=== PATIENT | female | born 1980 | race African-American/Black ===

== ENCOUNTER 2016-06-06 18:37 | Emergency (ER) | payer MEDICAID ==
[2016-06-07] MEDS ORDERED: PROCHLORPERAZINE EDISYLATE INJ 10 MG/2 ML VIAL IV ONE (01:19)
[2016-06-07] MEDS ORDERED: ONDANSETRON HCL INJ/PF 4 MG/2 ML SDV IV ONE (01:19)
[2016-06-07] MEDS: NORMAL SALINE 1000 ML 1,000 ML IV PRN ×2 (03:10→04:00)
--- NOTE | 2016-06-07 03:59 | ER Document Report ---
ED General - General Chief Complaint: Headache Stated Complaint: HEADACHE TRAVEL OUTSIDE OF THE [place] IN LAST 30 DAYS: No - HPI Patient complains to provider of: headache Notes: Patient with a history of migraines. Patient coming in for exacerbation of her chronic migraines. Patient states no change in her headaches. Patient denies fevers chills nausea vomiting patient states she is currently not on control. Denies any trauma. Denies any visual symptoms. - Related Data Allergies/Adverse Reactions: No Known Allergies Allergy (Verified 06/06/16 18:47) Past Medical History - General Information source: Patient - Social History Smoking Status: Never Smoker Chew tobacco use (# tins/day): No Frequency of alcohol use: None Drug Abuse: None Family History: None Patient has suicidal ideation: No Patient has homicidal ideation: No - Immunizations Hx Diphtheria, Pertussis, Tetanus Vaccination: Yes Review of Systems - Review of Systems Constitutional: No symptoms reported EENT: No symptoms reported Cardiovascular: No symptoms reported Respiratory: No symptoms reported Gastrointestinal: No symptoms reported Genitourinary: No symptoms reported Female Genitourinary: No symptoms reported Musculoskeletal: No symptoms reported Skin: No symptoms reported Hematologic/Lymphatic: No symptoms reported Neurological/Psychological: Headaches -: Yes All other systems reviewed and negative Physical Exam - Vital signs Vitals: Temp Pulse Resp BP Pulse Ox 98.9 F 85 16 106/60 100 06/06/16 18:43 06/06/16 18:43 06/06/16 18:43 06/06/16 18:43 06/06/16 18:43 Interpretation: Normal - General General appearance: Appears well, Alert - HEENT Head: Normocephalic, Atraumatic Eyes: Normal Conjunctiva: Normal Cornea: Normal Extraocular movements intact: Yes Pupils: PERRL Anterior chamber: Normal Fundascopic: Normal - Respiratory Respiratory status: No respiratory distress Chest status: Nontender Breath sounds: Normal Chest palpation: Normal - Cardiovascular Rhythm: Regular Heart sounds: Normal auscultation Murmur: No - Abdominal Inspection: Normal Distension: No distension Bowel sounds: Normal Tenderness: Nontender Organomegaly: No organomegaly - Back Back: Normal, Nontender - Extremities General upper extremity: Normal inspection, Nontender, Normal color, Normal ROM , Normal temperature General lower extremity: Normal inspection, Nontender, Normal color, Normal ROM , Normal temperature, Normal weight bearing. 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 The patient is neurologically intact. Given the extremely low risk of these diagnoses further testing and evaluation for these possibilities does not appear to be indicated at this time. The patient has been instructed to return if the symptoms worsen or change in any way.. - Vital Signs Vital signs: Temp Pulse Resp BP Pulse Ox 98.9 F 85 16 106/60 100 06/06/16 18:43 06/06/16 18:43 06/06/16 18:43 06/06/16 18:43 06/06/16 18:43 Discharge - Discharge Clinical Impression: Headache Qualifiers: Headache type: unspecified Headache chronicity pattern: unspecified pattern Intractability: not intractable Qualified Code(s): R51 - Headache Disposition: HOME, SELF-CARE Instructions: Intravenous Compazine for Headaches ([facility]), Headache ([facility]) Additional Instructions: May take medication as prescribed for headache. I will suggest taking them together. Return to the ER symptoms return Prescriptions: Ondansetron [Zofran Odt 4 mg Tablet] 4 mg PO Q6HP PRN #20 tab.rapdis PRN Reason: Prochlorperazine Maleate [Compazine] 5 mg PO Q6 #20 tablet Forms: Return to Work
[2016-06-07 05:07] VITALS: BP 107/61
== END 2016-06-07 05:08 | disposition home or self-care (01) ==
LOC: ER 18:37
DX: R51 Headache (principal)
CPT/HCPCS: 99283; 96361; 96374; 96375; J0780; J2405; J7030

== ENCOUNTER 2016-12-03 11:16 | Emergency (ER) | payer MEDICAID ==
[2016-12-03] MEDS ORDERED: KETOROLAC TROMETHAMINE INJ/PF 30 MG/1 ML SDV IV ONE (11:38)
[2016-12-03] MEDS ORDERED: ONDANSETRON HCL INJ/PF 4 MG/2 ML SDV IV ONE (11:39)
--- NOTE | 2016-12-03 11:41 | ER Document Report ---
ED Medical Screen (RME) - General Chief Complaint: Abdominal Pain Stated Complaint: BACK/ABDOMINAL PAIN Time Seen by Provider: 12/03/16 11:37 Notes: Patient is here complaining of lower abdominal cramping which she says feels like a "charley horse" patient says her symptoms began after she had an attempt at removing her IUD yesterday. She has had the IUD for 5 years and it is time for it to be removed. She says that the health department had difficulty trying to remove the IUD and ultimately was able to remove it. She began having some cramping soon after this happened yesterday afternoon. This morning , she is having more severe cramping pains and also at 8:00 began vomiting. No fever. Patient appears to be very uncomfortable. TRAVEL OUTSIDE OF THE [place] IN LAST 30 DAYS: No - Related Data Allergies/Adverse Reactions: No Known Allergies Allergy (Verified 12/03/16 11:21) Past Medical History - Social History Chew tobacco use (# tins/day): No Frequency of alcohol use: None Drug Abuse: None Neurological Medical History: Reports: Hx Migraine Renal/ Medical History: Denies: Hx Peritoneal Dialysis Surgical Hx: Negative - Immunizations Hx Diphtheria, Pertussis, Tetanus Vaccination: Yes Physical Exam - Vital signs Vitals: Temp Pulse Resp BP Pulse Ox 98.1 F 93 18 122/90 H 100 12/03/16 11:21 12/03/16 11:21 12/03/16 11:21 12/03/16 11:21 12/03/16 11:21 Course - Vital Signs Vital signs: Temp Pulse Resp BP Pulse Ox 98.1 F 93 18 122/90 H 100 12/03/16 11:21 12/03/16 11:21 12/03/16 11:21 12/03/16 11:21 12/03/16 11:21
[2016-12-03 12:28] LABS: ABSOLUTE EOSINOPHILS # (AUTO) 0.1 10^3/uL (0.0-0.6); ABSOLUTE LYMPHOCYTES (AUTO) 1.9 10^3/uL (0.5-4.7); ABSOLUTE MONOCYTES (AUTO) 0.4 10^3/uL (0.1-1.4); ABSOLUTE NEUT (AUTO) 6.6 10^3/uL (1.7-8.2); BASOPHILS % (AUTO) 0.1 % (0-2); EOSINOPHILS % (AUTO) 0.6 % (0-6); HEMATOCRIT 44.1 % (36.0-47.0); HEMOGLOBIN 14.5 g/dL (12.0-15.5); HGB HCT DIFFERENCE -0.6; LYMPHOCYTES % (AUTO) 20.9 % (13-45); MEAN CORPUSCULAR HEMOGLOBIN 29.1 pg (27.0-33.4); MEAN CORPUSCULAR HGB CONC 32.8 g/dL (32.0-36.0); MEAN CORPUSCULAR VOLUME 89 fl (80-97); RED BLOOD COUNT 4.97 10^6/uL (3.72-5.28); RED CELL DISTRIBUTION WIDTH 12.9 % (11.5-14.0); SEGMENTED NEUTROPHILS % (AUTO) 74.4 % (42-78); WHITE BLOOD COUNT 8.9 10^3/uL (4.0-10.5)
[2016-12-03] MEDS ORDERED: ERTAPENEM SODIUM INJ 1 GM VIAL IV ONE (12:30)
[2016-12-03] MEDS ORDERED: NORMAL SALINE 1000 ML 1,000 ML IV ONE (12:30)
[2016-12-03 12:54] LABS: ALANINE AMINOTRANSFERASE 28 U/L (9-52); ALBUMIN 4.6 g/dL (3.5-5.0); ALKALINE PHOSPHATASE 71 U/L (38-126); ANION GAP 12 (5-19); ASPARTATE AMINO TRANSFERASE 33 U/L (14-36); BILIRUBIN,DIRECT 0.3 mg/dL (0.0-0.4); BILIRUBIN,TOTAL 0.7 mg/dL (0.2-1.3); BLOOD UREA NITROGEN 9 mg/dL (7-20); CALCIUM 9.5 mg/dL (8.4-10.2); CARBON DIOXIDE 28 mmol/L (22-30); CHLORIDE 101 mmol/L (98-107); CREATININE RESULT 0.82 mg/dL (0.52-1.25); GLUCOSE 99 mg/dL (75-110); LIPASE 55.7 U/L (23-300); POTASSIUM 4.1 mmol/L (3.6-5.0); SODIUM 140.7 mmol/L (137-145); TOTAL PROTEIN 9.1 g/dL (6.3-8.2)
[2016-12-03 13:50] LABS: APPEARANCE,URINE CLEAR; BILIRUBIN,URINE NEGATIVE (NEGATIVE); GLUCOSE, URINE NEGATIVE (NEGATIVE); KETONES,URINE NEGATIVE (NEGATIVE); LEUKOCYTE ESTERASE,URINE NEGATIVE (NEGATIVE); NITRITE,URINE NEGATIVE (NEGATIVE); PROTEIN,URINE NEGATIVE (NEGATIVE); URINE SPECIFIC GRAVITY 1.019; UROBILINOGEN,URINE NEGATIVE mg/dL (<2.0)
--- NOTE | 2016-12-03 14:11 | RADIOLOGY REPORT (SQ) ---
EXAM DESCRIPTION: U/S NON-OB PELVIS TV W/O DOP COMPLETED DATE/TIME: 12/03/2016 1:27 pm REASON FOR STUDY: pelvic pain, eval location of IUD COMPARISON: None. TECHNIQUE: Dynamic and static grayscale images acquired of the pelvis via transvaginal approach and recorded on PACS. Additional selected color Doppler and spectral images recorded. LIMITATIONS: None. FINDINGS: UTERUS: Contour normal. No mass. ENDOMETRIAL STRIPE: 5 mm thickness, no irregularity. Artifact from an IUD extends from the lower iliamna rine segment into the fundus. CERVIX: No nabothian cysts. RIGHT OVARY: No abnormal masses. RIGHT OVARY DOPPLER: Normal arterial vascular flow without evidence for torsion. LEFT OVARY: No abnormal masses. LEFT OVARY DOPPLER: Normal arterial vascular flow without evidence for torsion. FREE FLUID: None noted. OTHER: No other significant finding. MEASUREMENTS: UTERUS: 7.7 x 6.0 x 3.8 cm ENDOMETRIAL STRIPE: As above, IUD looks grossly appropriate RIGHT OVARY: 2.6 x 1.6 x 1.9 cm LEFT OVARY: 2.5 x 2.2 x 1.6 cm IMPRESSION: IUD grossly appropriately positioned. Unremarkable pelvic ultrasound. TECHNICAL DOCUMENTATION: JOB ID: [id number] [employer]- All Rights Reserved
[2016-12-03] MEDS ORDERED: HYDROCODONE/ACETAMINOPHEN 5-325 MG TABLET PO ONE (14:36)
--- NOTE | 2016-12-03 14:48 | ER Document Report ---
ED GI/ - General Chief Complaint: Abdominal Pain Stated Complaint: BACK/ABDOMINAL PAIN Time Seen by Provider: 12/03/16 11:37 Notes: Patient is a 36-year-old female who presents emergency department complaining of abdominal pain. Patient states yesterday she went to the health department to have her IUD removed. She states that the provider was not able to locate the strings and remove it. She states that she has had an ultrasound back in February to confirm its placement since she is having cramping at that time and it was in the appropriate position. She states that the provider yesterday could not remove the strings and sent her home. She states she woke up this morning with severe pelvic cramping at about 6 AM that radiated into bilateral flanks. She states that she felt bloated. She admits to nausea and one episode of emesis but otherwise denies currently any nausea vomiting. She denies any diarrhea constipation, urinary retention, urgency, pyuria, hematuria , vaginal discharge, vaginal pain, vaginal itching. Patient states she is sexually active in a monogamous relationship with her . Past medical history significant for previous copper IUD in 2010 eroding into her uterus and required vaginal removal by an [employer]. Otherwise healthy female TRAVEL OUTSIDE OF THE [place] IN LAST 30 DAYS: No - Related Data Allergies/Adverse Reactions: No Known Allergies Allergy (Verified 12/03/16 11:21) Past Medical History - Social History Smoking Status: Never Smoker Chew tobacco use (# tins/day): No Frequency of alcohol use: None Drug Abuse: None Family History: None Patient has suicidal ideation: No Patient has homicidal ideation: No Neurological Medical History: Reports: Hx Migraine Renal/ Medical History: Denies: Hx Peritoneal Dialysis Surgical Hx: Negative - Immunizations Hx Diphtheria, Pertussis, Tetanus Vaccination: Yes Review of Systems - Review of Systems Constitutional: No symptoms reported Cardiovascular: No symptoms reported Respiratory: No symptoms reported Gastrointestinal: See HPI Genitourinary: See HPI Female Genitourinary: See HPI -: Yes All other systems reviewed and negative Physical Exam - Vital signs Vitals: Temp Pulse Resp BP Pulse Ox 98.1 F 93 18 122/90 H 100 12/03/16 11:21 12/03/16 11:21 12/03/16 11:21 12/03/16 11:21 12/03/16 11:21 - Notes Notes: PHYSICAL EXAM GENERAL: Alert, interacts well. HEAD: Normocephalic, atraumatic. EYES: Pupils equal, round, and reactive to light. Extraocular movements intact. ENT: Oral mucosa moist, tongue midline. NECK: Full range of motion. Supple. Trachea midline. LUNGS: Clear to auscultation bilaterally, no wheezes, rales, or rhonchi. No respiratory distress. HEART: Regular rate and rhythm. No murmurs, gallops, or rubs. ABDOMEN: Soft, nondistended, nontender. No guarding, rebound, or rigidity.. Bowel sounds present in all 4 quadrants. FEMALE : Normal external exam. No evidence of lesions, lacerations, bruising or vesicles. Speculum exam unable to appreciate cervix or IUD strings. No evidence of vaginal discharge with odor. No evidence of lesions. No vaginal bleeding. Bimanual exam normal no cervical motion tenderness. No adnexal mass or adnexal tenderness. EXTREMITIES: Moves all 4 extremities spontaneously. No edema, radial and dorsalis pedis pulses 2/4 bilaterally. No cyanosis. NEUROLOGICAL: Alert and oriented x4. Normal speech. PSYCH: Normal affect, normal mood. SKIN: Warm, dry, normal turgor. No rashes or lesions noted. Course - Re-evaluation Re-evalutation: 12/03/16 18:46 Patient is a 36-year-old female who is hemodynamic stable, no acute distress and afebrile. CBC stable without any evidence of leukocytosis or anemia. CMP normal. UA negative for UTI, Gonorrhea/Chlamydia screen negative. Ultrasound shows IUD in appropriate position without any free fluid in the adnexa bilaterally. Acute abdomen series without any evidence of free air. 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 Patient to be discharged home with strict return precautions. She is agreeable with plan. - Vital Signs Vital signs: Temp Pulse Resp BP Pulse Ox 98.0 F 88 18 125/90 H 99 12/03/16 16:00 12/03/16 16:00 12/03/16 16:00 12/03/16 16:00 12/03/16 16:00 - Laboratory Result Diagrams: 12/03/16 11:49 12/03/16 11:49 Laboratory results interpreted by me: 12/03/16 11:49 Total Protein 9.1 H - Diagnostic Test Radiology reviewed: Image reviewed, Reports reviewed Discharge - Discharge Clinical Impression: Pelvic pain Condition: Good Disposition: HOME, SELF-CARE Additional Instructions: Your IUD was confirmed to be in the correct place based on ultrasound completed in the emergency department today. There is no concern for infection at this time. Please follow-up with [facility] to have your [facility]UD removed Do not engage in intercourse until your symptoms have improved Prescriptions: Hydrocodone/Acetaminophen [Penrose 5-325 mg Tablet] 1 tab PO Q6HP PRN #15 tablet PRN Reason: Ibuprofen [Motrin 800 mg Tablet] 800 mg PO Q8H PRN #30 tab PRN Reason: Referrals: [facility] [Provider Group] - Follow up in 3-5 days
[2016-12-03 15:06] LABS: CHLAM PCR NOT DETECTED (NOT DETECT)
--- NOTE | 2016-12-03 15:16 | RADIOLOGY REPORT (SQ) ---
EXAM DESCRIPTION: ACUTE ABDOMEN SERIES COMPLETED DATE/TIME: 12/03/2016 2:57 pm REASON FOR STUDY: abdominal pain with distension COMPARISON: None. NUMBER OF VIEWS: Three views. TECHNIQUE: Frontal chest, supine abdomen and upright/decubitus abdomen radiographic images acquired. LIMITATIONS: None. FINDINGS: CHEST: Lungs clear of infiltrates. FREE AIR: None. No abnormal gas collections. BOWEL GAS PATTERN: Nonobstructive pattern. No dilated loops or air fluid levels. CALCIFICATIONS: No suspicious calcifications. HARDWARE: IUD artifact projects over the pelvis. SOFT TISSUES: No gross mass or suggestion of organomegaly. BONES: No acute fracture. No worrisome bone lesions. OTHER: No other significant finding. IMPRESSION: NO RADIOGRAPHIC EVIDENCE FOR ACUTE ABDOMINAL DISEASE. TECHNICAL DOCUMENTATION: JOB ID: [id number] [employer]- All Rights Reserved
[2016-12-03 16:07] VITALS: BP 125/90
== END 2016-12-03 16:08 | disposition home or self-care (01) ==
LOC: ER 11:16
DX: R10.2 Pelvic and perineal pain (principal); R11.2 Nausea with vomiting, unspecified; R10.9 Unspecified abdominal pain; Z97.5 Presence of (intrauterine) contraceptive device
CPT/HCPCS: 99284; 96375; 96365; 36415; 87040; 83690; 84703; 85025; 87077; 80053; 81001; 87186; 87491; 87591; 74022; 76830; J1335; J1885; J2405; J7030

== ENCOUNTER 2017-06-28 04:43 | Emergency (ER) | payer MEDICAID ==
[2017-06-28] MEDS ORDERED: NORMAL SALINE 500 ML IV ONE (05:49)
[2017-06-28] MEDS ORDERED: ONDANSETRON HCL INJ/PF 4 MG/2 ML SDV IV ONE (05:51)
[2017-06-28] MEDS ORDERED: MORPHINE SULFATE 10 MG/ML INJ IV ONE (05:58)
[2017-06-28] MEDS ORDERED: KETOROLAC TROMETHAMINE INJ/PF 30 MG/1 ML SDV IV ONE (05:58)
[2017-06-28 06:29] LABS: ABSOLUTE MONOCYTES (AUTO) 0.3 10^3/uL (0.1-1.4); ABSOLUTE NEUT (AUTO) 9.3 10^3/uL (1.7-8.2); BASOPHILS % (AUTO) 0.2 % (0-2); EOSINOPHILS % (AUTO) 0.1 % (0-6); HEMATOCRIT 40.7 % (36.0-47.0); HEMOGLOBIN 13.8 g/dL (12.0-15.5); LYMPHOCYTES % (AUTO) 9.3 % (13-45); MEAN CORPUSCULAR HEMOGLOBIN 29.8 pg (27.0-33.4); MEAN CORPUSCULAR HGB CONC 33.9 g/dL (32.0-36.0); MEAN CORPUSCULAR VOLUME 88 fl (80-97); MONOCYTES % (AUTO) 2.9 % (3-13); PLATELET COUNT 203 10^3/uL (150-450); RED BLOOD COUNT 4.63 10^6/uL (3.72-5.28); RED CELL DISTRIBUTION WIDTH 12.8 % (11.5-14.0); SEGMENTED NEUTROPHILS % (AUTO) 87.5 % (42-78); TOTAL CELLS COUNTED % (AUTO) 100 %; WHITE BLOOD COUNT 10.6 10^3/uL (4.0-10.5)
[2017-06-28 06:42] LABS: ALANINE AMINOTRANSFERASE 32 U/L (9-52); ALBUMIN 4.6 g/dL (3.5-5.0); ALKALINE PHOSPHATASE 56 U/L (38-126); ANION GAP 11 (5-19); ASPARTATE AMINO TRANSFERASE 21 U/L (14-36); BILIRUBIN,DIRECT 0.3 mg/dL (0.0-0.4); BILIRUBIN,TOTAL 0.4 mg/dL (0.2-1.3); BLOOD UREA NITROGEN 14 mg/dL (7-20); CALCIUM 9.6 mg/dL (8.4-10.2); CARBON DIOXIDE 26 mmol/L (22-30); CHLORIDE 104 mmol/L (98-107); GLUCOSE 128 mg/dL (75-110); LIPASE 81.8 U/L (23-300); POTASSIUM 4.1 mmol/L (3.6-5.0); SODIUM 141.1 mmol/L (137-145)
--- NOTE | 2017-06-28 07:28 | RADIOLOGY REPORT (SQ) ---
EXAM DESCRIPTION: U/S ABDOMEN LIMITED W/O DOP CLINICAL HISTORY: RUQ pain, vomiting COMPARISON: None. TECHNIQUE: Real-time sonographic images of the right upper abdomen were obtained using a curved multihertz transducer. FINDINGS: The visualized portions of the pancreas are unremarkable. The visualized portions of the aorta and IVC are unremarkable. The liver has normal contour and increased echogenicity. Hepatopedal flow in the portal vein. Common bile duct measures 0.3 cm. No abnormal gallbladder wall thickness. No pericholecystic fluid identified. Mobile echogenic structures within the gallbladder lumen compatible with gallstones. The right kidney measures 10.3 cm in length. No hydronephrosis, solid renal mass, or shadowing calculi. IMPRESSION: 1. Cholelithiasis without other sonographic evidence of acute cholecystitis. 2. Hepatic steatosis.
--- NOTE | 2017-06-28 08:41 | ER Document Report ---
ED General - General Chief Complaint: Epigastric Pain Stated Complaint: ABDOMINAL PAIN Time Seen by Provider: 06/28/17 06:19 TRAVEL OUTSIDE OF THE [place] IN LAST 30 DAYS: No - HPI Patient complains to provider of: Abdominal pain Notes: Complaining of right upper quadrant epigastric abdominal pain workup in the middle the night with nausea vomiting. Denies fevers or chills. Patient states had brisket at night patient denies any other abdominal surgeries. Patient upon my evaluation has very received morphine and ultrasound patient states pain has resolved denies any drinking denies any excessive NSAID use denies fevers chills - Related Data Allergies/Adverse Reactions: No Known Allergies Allergy (Verified 12/03/16 11:21) Past Medical History - Social History Smoking Status: Never Smoker Frequency of alcohol use: None Drug Abuse: None Family History: None Patient has suicidal ideation: No Patient has homicidal ideation: No Neurological Medical History: Reports: Hx Migraine Renal/ Medical History: Denies: Hx Peritoneal Dialysis - Immunizations Hx Diphtheria, Pertussis, Tetanus Vaccination: Yes Review of Systems - Review of Systems Constitutional: No symptoms reported EENT: No symptoms reported Cardiovascular: No symptoms reported Respiratory: No symptoms reported Gastrointestinal: Abdominal pain Genitourinary: No symptoms reported Female Genitourinary: No symptoms reported Musculoskeletal: No symptoms reported Skin: No symptoms reported Hematologic/Lymphatic: No symptoms reported Neurological/Psychological: No symptoms reported -: Yes All other systems reviewed and negative Physical Exam - Vital signs Vitals: Pulse Ox 96 06/28/17 05:06 Interpretation: Normal - General General appearance: Appears well, Alert - HEENT Head: Normocephalic, Atraumatic Eyes: Normal Pupils: PERRL - Respiratory Respiratory status: No respiratory distress Chest status: Nontender Breath sounds: Normal Chest palpation: Normal - Cardiovascular Rhythm: Regular Heart sounds: Normal auscultation Murmur: No - Abdominal Inspection: Normal Distension: No distension Bowel sounds: Normal Tenderness: Tender - general abdominal tenderness Organomegaly: No organomegaly - Back Back: Normal, Nontender - Extremities General upper extremity: Normal inspection, Nontender, Normal color, Normal ROM , Normal temperature General lower extremity: Normal inspection, Nontender, Normal color, Normal ROM , Normal temperature, Normal weight bearing. No: Abbey's sign - Neurological Neuro grossly intact: Yes Cognition: Normal Orientation: AAOx4 Randall Coma Scale Eye Opening: Spontaneous Randall Coma Scale Verbal: Oriented Orla Coma Scale Motor: Obeys Commands Randall Coma Scale Total: 15 Speech: Normal Motor strength normal: LUE, RUE, LLE, RLE Sensory: Normal - Psychological Associated symptoms: Normal affect, Normal mood - Skin Skin Temperature: Warm Skin Moisture: Dry Skin Color: Normal Course - Re-evaluation Re-evalutation: 06/28/17 15:27 The patient presents with abdominal pain without signs of peritonitis or other life-threatening or serious etiology. The patient appears stable for discharge and has been instructed to return immediately if the symptoms worsen in any way , or in 8-12hr if not improved for re-evaluation. The patient has been instructed to return if the symptoms worsen or change in any way. Long discussion with patient about the pathophysiology of gallstones and diet control patient does not want surgery at this time. No signs of acute inflammation or acute cholecystitis therefore patient will be discharged home with dietary restrictions - Vital Signs Vital signs: Temp Pulse Resp BP Pulse Ox 97.4 F 74 16 104/77 97 06/28/17 05:15 06/28/17 06:20 06/28/17 08:44 06/28/17 08:44 06/28/17 08:44 - Laboratory Result Diagrams: 06/28/17 06:15 06/28/17 06:15 Laboratory results interpreted by me: 06/28/17 06/28/17 06:15 06:15 WBC 10.6 H Seg Neutrophils % 87.5 H Lymphocytes % 9.3 L Monocytes % 2.9 L Absolute Neutrophils 9.3 H Glucose 128 H Discharge - Discharge Clinical Impression: Cholelithiasis Qualifiers: Cholelithiasis location: gallbladder Cholecystitis presence: without cholecystitis Biliary obstruction: without biliary obstruction Qualified Code(s) : K80.20 - Calculus of gallbladder without cholecystitis without obstruction Condition: Good Disposition: HOME, SELF-CARE Instructions: Clear Liquid Diet ([facility]), Gallbladder Disease ([facility]), Low-Fat Diet ([facility]), Surgeon Additional Instructions: Your ultrasound today shows gallstones within your gallbladder. At this time there is no signs of inflammation or infection. Please avoid foods that are high content of fat grease and oil. I recommend a clear liquid diet for the next 24 hours then advance to low-fat diet. If you continue to have episodes of pain she may require surgery. Follow-up with the surgeon listed. If your pain is severe again please return to the ER. Take medications as prescribed. He may also take Tylenol and Motrin for pain control. Prescriptions: Hydrocodone Bit/Acetaminophen [Hydrocodon-Acetaminophen 5-325] 1 each PO Q6 PRN #30 tablet PRN Reason: For Pain Ondansetron [Zofran Odt] 4 mg PO Q6 PRN #30 tab.rapdis PRN Reason: For Nausea/Vomiting Forms: Return to Work
--- NOTE | 2017-06-28 08:48 | EKG REPORT ---
SEVERITY:- NORMAL ECG - SINUS RHYTHM : Confirmed by: Katia Hassan MD 28-Jun-2017 08:47:27
[2017-06-28 09:04] VITALS: BP 104/77
== END 2017-06-28 09:04 | disposition home or self-care (01) ==
LOC: ER 04:43
DX: K80.20 Calculus of gallbladder without cholecystitis without obstruction (principal); R10.11 Right upper quadrant pain; R10.817 Generalized abdominal tenderness; R11.2 Nausea with vomiting, unspecified
CPT/HCPCS: 93005; 99284; 96374; 96375; 36415; 83690; 85025; 80053; 76705; 93010; J1885; J2270; J2405; J7040

== ENCOUNTER 2017-07-26 23:00 | Emergency (ER) | payer SELFPAY ==
--- NOTE | 2017-07-27 00:17 | ER Document Report ---
ED Medical Screen (RME) - General Chief Complaint: Abdominal Pain Stated Complaint: ABDOMINAL PAIN Time Seen by Provider: 07/27/17 00:17 Mode of Arrival: Ambulatory Information source: Patient Notes: 36 yo female c/o sudden onset RUQ pain that radiates to right flank/midline chest associated with nausea and vomiting since this afternoon. Similar attack with dx cholelithiasis. Saw obgyn monday for similar pains for IUD that was imbedded, pulled it out on monday at the office. Vaginal bleeding since. She is not sure if this pain is from the GB or uterus. Last food 1800, sprite 50ml at 2100. No hx kidney stones, no urinary frequency. No fever. TRAVEL OUTSIDE OF THE [place] IN LAST 30 DAYS: No - Related Data Allergies/Adverse Reactions: No Known Allergies Allergy (Verified 12/03/16 11:21) Past Medical History Neurological Medical History: Reports: Hx Migraine Renal/ Medical History: Denies: Hx Peritoneal Dialysis - Immunizations Hx Diphtheria, Pertussis, Tetanus Vaccination: Yes Physical Exam - Vital signs Vitals: Temp Pulse Resp BP Pulse Ox 98.7 F 94 16 115/53 L 100 07/26/17 23:04 07/26/17 23:04 07/26/17 23:04 07/26/17 23:04 07/26/17 23:04 Course - Vital Signs Vital signs: Temp Pulse Resp BP Pulse Ox 98.7 F 94 16 115/53 L 100 07/26/17 23:04 07/26/17 23:04 07/26/17 23:04 07/26/17 23:04 07/26/17 23:04
[2017-07-27] MEDS ORDERED: ONDANSETRON 4 MG TAB.RAPDIS PO ONE (00:20)
[2017-07-27] MEDS ORDERED: NORMAL SALINE 1000 ML 1,000 ML IV ONE ×2 (00:25→02:08)
[2017-07-27] MEDS ORDERED: HYDROMORPHONE HCL INJ/PF 2 MG/ML AMPULE IM ONE (00:28)
[2017-07-27 01:15] LABS: ABSOLUTE EOSINOPHILS # (AUTO) 0.1 10^3/uL (0.0-0.6); ABSOLUTE LYMPHOCYTES (AUTO) 1.8 10^3/uL (0.5-4.7); ABSOLUTE MONOCYTES (AUTO) 0.4 10^3/uL (0.1-1.4); ABSOLUTE NEUT (AUTO) 4.4 10^3/uL (1.7-8.2); BASOPHILS % (AUTO) 0.3 % (0-2); EOSINOPHILS % (AUTO) 1.1 % (0-6); HEMATOCRIT 40.4 % (36.0-47.0); HEMOGLOBIN 13.9 g/dL (12.0-15.5); LYMPHOCYTES % (AUTO) 26.7 % (13-45); MEAN CORPUSCULAR HEMOGLOBIN 30.5 pg (27.0-33.4); MEAN CORPUSCULAR HGB CONC 34.4 g/dL (32.0-36.0); MEAN CORPUSCULAR VOLUME 89 fl (80-97); MONOCYTES % (AUTO) 6.5 % (3-13); PLATELET COUNT 210 10^3/uL (150-450); RED BLOOD COUNT 4.55 10^6/uL (3.72-5.28); RED CELL DISTRIBUTION WIDTH 13.2 % (11.5-14.0); SEGMENTED NEUTROPHILS % (AUTO) 65.4 % (42-78); TOTAL CELLS COUNTED % (AUTO) 100 %; WHITE BLOOD COUNT 6.8 10^3/uL (4.0-10.5)
[2017-07-27 01:28] LABS: APPEARANCE,URINE CLEAR; BILIRUBIN,URINE SMALL (NEGATIVE); COLOR,URINE AMBER; GLUCOSE, URINE NEGATIVE (NEGATIVE); KETONES,URINE NEGATIVE (NEGATIVE); LEUKOCYTE ESTERASE,URINE NEGATIVE (NEGATIVE); NITRITE,URINE NEGATIVE (NEGATIVE); PROTEIN,URINE NEGATIVE (NEGATIVE)
[2017-07-27 01:29] LABS: ALANINE AMINOTRANSFERASE 356 U/L (9-52); ALBUMIN 4.5 g/dL (3.5-5.0); ALKALINE PHOSPHATASE 76 U/L (38-126); ANION GAP 11 (5-19); ASPARTATE AMINO TRANSFERASE 491 U/L (14-36); BILIRUBIN,DIRECT 1.7 mg/dL (0.0-0.4); BILIRUBIN,TOTAL 2.8 mg/dL (0.2-1.3); BLOOD UREA NITROGEN 11 mg/dL (7-20); CALCIUM 9.6 mg/dL (8.4-10.2); CARBON DIOXIDE 27 mmol/L (22-30); CHLORIDE 105 mmol/L (98-107); GLUCOSE 97 mg/dL (75-110); LIPASE 79.9 U/L (23-300); POTASSIUM 4.3 mmol/L (3.6-5.0); TOTAL PROTEIN 8.2 g/dL (6.3-8.2)
--- NOTE | 2017-07-27 01:38 | RADIOLOGY REPORT (SQ) ---
EXAM DESCRIPTION: CT ABDOMEN AND PELVIS WITHOUT CONTRAST CLINICAL HISTORY: RUQ, R flank pain. IUD removed 3 days ago, vag bleeding since. hx GB stones COMPARISON: None Available. TECHNIQUE: CT of the abdomen and pelvis without IV contrast. FINDINGS: Abdomen: The liver has normal size and density. Cholelithiasis. No pericholecystic inflammatory change. The spleen, pancreas, and adrenal glands are unremarkable. The kidneys have normal size and contour without evidence of hydronephrosis. No obstructing ureteral calculi. The aorta and IVC have normal caliber and position. No free intraperitoneal air. Small hiatal hernia. Pelvis: Uterus is not enlarged. Urinary bladder is decompressed No free pelvic fluid or lymphadenopathy. No dilated loops of large or small bowel. Normal appendix. The visualized lung bases are clear. No destructive bone lesions identified. DLP: 1124.52 mGy-cm IMPRESSION: 1. Cholelithiasis without other CT evidence of acute cholecystitis. This exam was performed according to our departmental dose-optimization program, which includes automated exposure control, adjustment of the mA and/or kV according to patient size and/or use of iterative reconstruction technique.
--- NOTE | 2017-07-27 04:00 | RADIOLOGY REPORT (SQ) ---
EXAM DESCRIPTION: U/S ABDOMEN LIMITED W/O DOP CLINICAL HISTORY: check the ducts COMPARISON: 07/27/2017 TECHNIQUE: Real-time sonographic images of the right upper abdomen were obtained using a curved multihertz transducer. FINDINGS: The visualized portions of the pancreas are unremarkable. The visualized portions of the aorta and IVC are unremarkable. The liver has normal contour and echogenicity. Common bile duct is nondilated measuring 0.2 cm. Hepatopedal flow in the portal vein. Echogenic structures identified in the gallbladder lumen. Normal gallbladder wall thickness. Negative reported sonographic Ayala sign. No pericholecystic fluid. The right kidney measures 10.3 cm in length. No hydronephrosis, solid renal mass, or shadowing calculi. IMPRESSION: 1. Cholelithiasis without other sonographic evidence of acute cholecystitis.
--- NOTE | 2017-07-27 04:25 | ER Document Report ---
ED GI/ <PEDRO JONAS - Last Filed: 07/27/17 18:11> - General Mode of Arrival: Ambulatory Information source: Patient TRAVEL OUTSIDE OF THE [place] IN LAST 30 DAYS: No - HPI Patient complains to provider of: Abdominal pain, Vomiting Onset: Yesterday Timing/Duration: Gradual Quality of pain: Sharp, Stabbing Severity at maximum: Severe Severity in ED: Mild Pain Level: 1 Location: RUQ Associated symptoms: Nausea, Vomiting Exacerbated by: Movement, Food Relieved by: Denies Similar symptoms previously: Yes Recently seen / treated by doctor: Yes <NESSA GREENE - Last Filed: 07/31/17 01:31> - General Chief Complaint: Abdominal Pain Stated Complaint: ABDOMINAL PAIN Time Seen by Provider: 07/27/17 00:17 Notes: 36-year-old female presents to ED for complaint of upper abdominal pain since about 3 PM on Monday with nausea and vomiting since 6 PM. She states the pain became much worse at 7 PM and by 9:00 she cannot stand it anymore. She states she continues to have nausea, vomited last at midnight. Patient was seen in the ED on June 282017 and was diagnosed with a gallstone and fatty liver and told to follow-up with the surgeon. She states she has not followed up as yet. (NESSA GREENE) - Related Data Allergies/Adverse Reactions: No Known Allergies Allergy (Verified 12/03/16 11:21) Past Medical History - General Information source: Patient - Social History Smoking Status: Never Smoker Cigarette use (# per day): No Chew tobacco use (# tins/day): No Smoking Education Provided: No Frequency of alcohol use: None Drug Abuse: None Occupation: None Lives with: Family Family History: DM. denies: Arthritis, CAD, Hypertension, Malignancy, Thyroid Disfunction Patient has suicidal ideation: No Patient has homicidal ideation: No - Past Medical History Cardiac Medical History: Reports: None Pulmonary Medical History: Reports: None EENT Medical History: Reports: None Neurological Medical History: Reports: Hx Migraine Endocrine Medical History: Reports: None Renal/ Medical History: Reports: None Malignancy Medical History: Reports: None GI Medical History: Reports: Other - Cholelithiasis Musculoskeltal Medical History: Reports None Skin Medical History: Reports Other - Malave to left hand with skin graft Psychiatric Medical History: Reports: None Traumatic Medical History: Reports: None Infectious Medical History: Reports: None Past Surgical History: Reports: Other - Skin graft left hand - Immunizations Hx Diphtheria, Pertussis, Tetanus Vaccination: Yes <ADANNESSA GARZA - Last Filed: 07/31/17 01:31> Review of Systems <PEDRO JONAS - Last Filed: 07/27/17 18:11> <NESSA GREENE - Last Filed: 07/31/17 01:31> - Review of Systems Notes: Constitutional: [PRESENT: as per HPI. ABSENT: chills, fever(s), headache(s), weight gain, weight loss] Eyes: [ABSENT: visual disturbances] Ears: [ABSENT: hearing changes] Cardiovascular: [ABSENT: chest pain, dyspnea on exertion, edema, orthropnea, palpitations] Respiratory: [ABSENT: cough, hemoptysis] Gastrointestinal: Right upper quadrant abdominal pain nausea and vomiting Genitourinary: [ABSENT: dysuria, hematuria] Musculoskeletal: [ABSENT: joint swelling] Integumentary: [ABSENT: rash, wounds] Neurological: [ABSENT: abnormal gait, abnormal speech, confusion, dizziness, focal weakness, syncope] Psychiatric: [ABSENT: depression, homicidal ideation, suicidal ideation] anxiety due to pain Endocrine: [ABSENT: cold intolerance, heat intolerance, menstrual abnormalities , polydipsia, polyuria] Hematologic/Lymphatic: [ABSENT: easy bleeding, easy bruising, lymphadenopathy] ( NESSA GREENE) Physical Exam <PEDRO JONAS - Last Filed: 07/27/17 18:11> <NESSA GREENE - Last Filed: 07/31/17 01:31> - Vital signs Vitals: Temp Pulse Resp BP Pulse Ox 98.7 F 94 16 115/53 L 100 07/26/17 23:04 07/26/17 23:04 07/26/17 23:04 07/26/17 23:04 07/26/17 23:04 - Notes Notes: PHYSICAL EXAMINATION: GENERAL: 36-year-old obese female well-appearing, well-nourished and in no acute distress. HEAD: Atraumatic, normocephalic. EYES: Pupils equal round and reactive to light, extraocular movements intact, conjunctiva are normal. ENT: Nares patent, oropharynx clear without exudates. Moist mucous membranes. NECK: Normal range of motion, supple without lymphadenopathy LUNGS: Breath sounds clear to auscultation bilaterally and equal. No wheezes rales or rhonchi. HEART: Regular rate and rhythm without murmurs ABDOMEN: Soft, right upper quadrant tenderness, positive Ayala sign, guarding when palpated to right upper quadrant otherwise abdominal exam negative Female : deferred Musculoskeletal: Normal range of motion, no pitting or edema. No cyanosis. NEUROLOGICAL: Cranial nerves grossly intact. Normal speech, normal gait. Normal sensory, motor exams PSYCH: Normal mood, normal affect. SKIN: Warm, Dry, normal turgor, no rashes or lesions noted. (NESSA GREENE) Course - Laboratory Result Diagrams: 07/27/17 00:45 07/27/17 00:45 <PEDRO JONAS - Last Filed: 07/27/17 18:11> - Laboratory Result Diagrams: 07/27/17 00:45 07/27/17 00:45 - Diagnostic Test Radiology reviewed: Image reviewed, Reports reviewed <NESSA GREENE - Last Filed: 07/31/17 01:31> - Re-evaluation Re-evalutation: 07/27/17 14:51 Patient has required 1 dose of Dilaudid all day. Transport is now here to take patient. Patient has no complaints and vitals are all stable. (PEDRO JONAS) 07/27/17 04:26 Discussed labs, ultrasound, and CT with Dr. Casarez. Patient has cholelithiasis with elevated liver enzymes of total bilirubin 2.8 direct bili 1.7 AST 491 and ALT 356. CBC is normal. Consulted Dr. Monte straddle buggy operator states he does not do ERCPs. Dr. Casarez stated patient will need to be transferred for ERCP [facility] 9 called they stated they did not have anyone who does ERCP on tonight. Please call to [facility] and awaiting callback. Patient has been treated earlier with narcotics IV antinausea medicine IV and IV fluids by Katia Pennington NP who is the pit provider. I will give patient nausea medicine now while waiting for call back from [facility]. Patient states her pain is minimal except for when palpated at this time. 02/22/18 04:[address] Sen at [facility] who stated that the patient has acute hepatitis but he would accept her to evaluate this acute hepatitis. I had informed Dr. Sen that the patient had been diagnosed with a cholelithiasis in June and had acute abdominal pain nausea and vomiting tonight with elevated liver enzymes tonight they were normal in June. He stated they did not have a bed at this time but they would have one later today and he did except the patient for transfer. (NESSA GREENE) - Vital Signs Vital signs: Temp Pulse Resp BP Pulse Ox 97.8 F 82 18 91/59 L 99 07/27/17 14:45 07/27/17 07:53 07/27/17 14:10 07/27/17 14:10 07/27/17 14:10 - Laboratory Laboratory results interpreted by me: 07/27/17 07/27/17 00:45 00:50 Total Bilirubin 2.8 H Direct Bilirubin 1.7 H AST 491 H ALT 356 H Urine Bilirubin SMALL H Urine Urobilinogen 4.0 H Discharge <PEDRO JONAS - Last Filed: 07/27/17 18:11> <NESSA GREENE - Last Filed: 07/31/17 01:31> - Discharge Clinical Impression: Cholelithiasis with elevated liver enzym Disposition: [facility]
[2017-07-27] MEDS ORDERED: ONDANSETRON HCL INJ/PF 4 MG/2 ML SDV IV ONE (04:33)
[2017-07-27] MEDS ORDERED: HYDROMORPHONE HCL INJ/PF 2 MG/ML AMPULE IV ONE ×2 (05:30→11:04)
[2017-07-27 14:25] VITALS: BP 91/59
== END 2017-07-27 15:00 | disposition short-term general hospital (02) ==
LOC: ER 23:00
DX: K80.20 Calculus of gallbladder without cholecystitis without obstruction (principal); B17.9 Acute viral hepatitis, unspecified; R11.2 Nausea with vomiting, unspecified; R10.11 Right upper quadrant pain
CPT/HCPCS: 96376; 99285; 96372; 96361; 96374; 96375; 36415; 83690; 84703; 85025; 80053; 81001; 76705; 76380; S0119; J1170; J2405; J7030